=== PATIENT | female | born 1960 | race Caucasian/White ===

== ENCOUNTER 2019-03-22 14:54 | Emergency (ER) | payer OTHER ==
[~2019-03-22] VITALS: Ht 167.6 cm; Wt 82.6 kg
[2019-03-22] MEDS ORDERED: IV NORMAL SALINE 1,000ML 1,000 ML IV SCH (15:05)
--- NOTE | 2019-03-22 15:13 | PHYS DOC ---
Past History Past Medical History: IBS Additional Past Medical Histor: myotonic dystrophy, reports history of left bundle-branch block Past Surgical History: Additional Past Surgical Histo: diagnostic laparoscopy for IBS Smoking: Non-smoker Adult General Chief Complaint Chief Complaint: NAUSEA/VOMITING/DIARRHEA HPI HPI Patient is a 58-year-old female who presents to the emergency department via EMS., For the relatively sudden onset of vomiting which began about an hour prior to arrival. She has had numerous episodes of nonbloody, nonbilious emesis. She denies any pain at this time, including any abdominal pain, headache, chest pain, or shortness of breath. She reports no changes in her bowel habits, or no bloody stools. She denies any numbness or weakness or speech difficulties. She has not had any vision changes. There are no alleviating or exacerbating factors to her symptoms. She reports difficulty hearing over the past week, reportedly saw her PCP who tried to get her into an ENT, but the patient is able to converse normally and exhibits normal hearing. Review of Systems Review of Systems Constitutional: Denies fever or chills [] Eyes: Denies change in visual acuity, redness, or eye pain [] HENT: Denies nasal congestion or sore throat [] Respiratory: Denies cough or shortness of breath [] Cardiovascular: The patient denies any shortness of breath, chest pain, palpitations, or orthopnea[] GI: No other information not addressed in the history of present illness[] : Denies dysuria or hematuria [] Musculoskeletal: Denies back pain or joint pain [] Integument: Denies rash or skin lesions [] Neurologic: Denies headache, focal weakness or sensory changes. Denies dizziness. [] Endocrine: Denies polyuria or polydipsia [] All other systems were reviewed and found to be within normal limits, except as documented in this note. Current Medications Current Medications Current Medications Medications (Trade) Dose Ordered Sig/Mery Start Time Stop Time Status Last Admin Dose Admin Ondansetron HCl (Zofran) 4 mg 1X ONCE 03/22/19 15:15 03/22/19 15:16 UNV Sodium Chloride 1,000 ml @ 1,000 mls/hr Q1H 03/22/19 15:05 03/22/19 16:04 UNV Physical Exam Physical Exam PHYSICAL EXAM: CONSTITUTIONAL: Well developed, well nourished HEAD: normocephalic, atraumatic EENT: PERRL, EOMI. Conjunctivae normal color, sclerae non-icteric; moist mucous membranes. NECK: Supple, non-tender; no meningismus. LUNGS: Lungs CTA, breathing even and unlabored. Normal air movement. HEART: Regular rate and rhythm, no murmur CHEST: No deformity; non-tender ABDOMEN: The abdomen is soft, and non-tender, no masses or bruits. EXTREM: Normal ROM; no deformity, no calf tenderness. Normal pulses palpable in all extremities. There is no pedal edema. SKIN: No rash; no diaphoresis NEURO: Alert; normal speech and cognition; CN's grossly intact; strength grossly symmetrical and intact without focal deficit, although there is diffuse mild muscle weakness. BACK: No CVA TTP. Current Patient Data Lab Results Laboratory Tests Test 03/22/19 15:01 Glucose (Fingerstick) 120 mg/dL (70-99) H EKG EKG Normal sinus rhythm at a rate of 69 beats for minute, left axis deviation, left bundle branch block, there is no acute ischemic ST/T changes.[] Radiology/Procedures Radiology/Procedures PROCEDURE: CT ABDOMEN PELVIS WO CONTRAST CT ABDOMEN PELVIS WO CONTRAST History: Nausea and vomiting. Technique: Noncontrast examination of the abdomen and pelvis. Coronal and sagittal reconstructions were performed. Exposure: One or more of the following individualized dose reduction techniques were utilized for this examination: 1. Automated exposure control 2. Adjustment of the mA and/or kV according to patient size 3. Use of iterative reconstruction technique. Comparison: None Findings: Lower chest: Bibasilar subsegmental atelectasis. No pleural effusion. No consolidation. Abdomen and pelvis: The liver, spleen, adrenal glands, pancreas and gallbladder are unremarkable. Unremarkable appearance of the kidneys. No hydronephrosis. No renal calculi. Normal appendix. No evidence of bowel obstruction. No pathologic lymphadenopathy. No ascites. Bones: No pathologic osseous lesions. Impression: 1. No acute intra-abdominal or pelvic pathology. 2. Bibasilar pulmonary atelectasis. [] Course & Med Decision Making Course & Med Decision Making Pertinent Labs and Imaging studies reviewed. (See chart for details) []5:05 PM: The patient's condition remained stable, her vomiting has stopped. She still appears generally weak. I discussed overnight hospitalization for observation and hydration but she declined, preferring to go home. I discussed importance of close follow-up and return precautions in detail. Ning Disclaimer Dragon Disclaimer This electronic medical record was generated, in whole or in part, using a voice recognition dictation system. Departure Departure: Impression: Primary Impression: Nausea & vomiting Disposition: HOME, SELF-CARE Condition: STABLE Patient Instructions: Nausea and Vomiting Scripts Ondansetron (ONDANSETRON ODT) 4 Mg Tab.rapdis 1 TAB PO PRN Q6-8HRS for N/V, #15 TAB Prov: KAMILLA BRADSHAW MD 03/22/19 KAMILLA BRADSHAW MD Mar 22, 2019 15:12
[2019-03-22] MEDS ORDERED: ONDANSETRON PF 4 MG/2 ML VIAL. IVP ONE (15:15)
[2019-03-22] MEDS ORDERED: IOHEXOL 300 MG/ML 75 ML VIAL. IV ONE (15:15)
[2019-03-22 15:28] LABS: BASO # 0.1 x10^3/uL (0.0-0.2); BASO % 1 % (0-3); EOS # 0.1 x10^3/uL (0.0-0.7); EOS % 2 % (0-3); HEMATOCRIT 44.9 % (36.0-47.0); HEMOGLOBIN 14.7 g/dL (12.0-15.5); LYMPH # 1.4 x10^3/uL (1.0-4.8); LYMPH % 18 % (24-48); MEAN CORPUSCULAR HEMOGLOBIN 31 pg (25-35); MEAN CORPUSCULAR HGB CONC 33 g/dL (31-37); MEAN CORPUSCULAR VOLUME 95 fL (79-100); MONO # 0.4 x10^3/uL (0.0-1.1); MONO % 5 % (0-9); NEUT % 74 % (31-73); PLATELET COUNT 179 x10^3/uL (140-400); RED BLOOD COUNT 4.71 x10^6/uL (3.50-5.40); RED CELL DISTRIBUTION WIDTH 14.3 % (11.5-14.5)
[2019-03-22 15:44] LABS: ALBUMIN 3.8 g/dL (3.4-5.0); ALBUMIN/GLOBULIN RATIO 1.2 (1.0-1.7); CALCIUM 9.1 mg/dL (8.5-10.1); CREATININE 0.7 mg/dL (0.6-1.0); GFR 85.4; POTASSIUM 3.9 mmol/L (3.5-5.1); TOTAL BILIRUBIN 0.9 mg/dL (0.2-1.0); TOTAL PROTEIN 6.9 g/dL (6.4-8.2)
--- NOTE | 2019-03-22 16:08 | RAD ---
CT ABDOMEN PELVIS WO CONTRAST History: Nausea and vomiting. Technique: Noncontrast examination of the abdomen and pelvis. Coronal and sagittal reconstructions were performed. Exposure: One or more of the following individualized dose reduction techniques were utilized for this examination: 1. Automated exposure control 2. Adjustment of the mA and/or kV according to patient size 3. Use of iterative reconstruction technique. Comparison: None Findings: Lower chest: Bibasilar subsegmental atelectasis. No pleural effusion. No consolidation. Abdomen and pelvis: The liver, spleen, adrenal glands, pancreas and gallbladder are unremarkable. Unremarkable appearance of the kidneys. No hydronephrosis. No renal calculi. Normal appendix. No evidence of bowel obstruction. No pathologic lymphadenopathy. No ascites. Bones: No pathologic osseous lesions. Impression: 1. No acute intra-abdominal or pelvic pathology. 2. Bibasilar pulmonary atelectasis. Electronically signed by: Frank Mansfield DO (03/22/2019 4:04 PM) [facility]
[2019-03-22 16:37] VITALS: BP 121/65
[2019-03-22 16:47] LABS: COLOR,URINE YELLOW
[2019-03-22 16:48] LABS: BACTERIA,URINE FEW /HPF (0-FEW); BILIRUBIN,URINE NEG (NEG); CLARITY,URINE CLOUDY; GLUCOSE,URINE NEG (NEG); NITRITE,URINE NEG (NEG); RBC,URINE OCC /HPF (0-2); SQUAMOUS EPITHELIAL CELL,UR MOD /LPF; UROBILINOGEN,URINE 0.2 mg/dL (0.2 mg/dL); WBC,URINE OCC /HPF (0-4)
[2019-03-22] MEDS ORDERED: ONDA4TAB12 PO (17:08)
--- NOTE | 2019-03-26 12:27 | EKG ---
[address] [address] Test Date: 2019-03-22 Test Time: 15:22:37 Pat Name: SANJANA MADDOX Department: Room: Gender: F [employer]: : 1960 Requested By: KAMILLA BRADSHAW Order Number: [id number] Reading MD: Measurements Intervals [place] Rate: 69 P: -56 MD: 152 QRS: -28 QRSD: 124 T: 111 QT: 478 QTc: 514 Interpretive Statements SINUS RHYTHM LEFTWARD AXIS LVH WITH REPOLARIZATION ABNORMALITY QRS(T) CONTOUR ABNORMALITY CONSIDER ANTEROSEPTAL MYOCARDIAL DAMAGE ABNORMAL ECG RI6.01 No previous ECG available for comparison
== END 2019-03-22 17:13 | disposition home or self-care (01) ==
LOC: ER 14:54
DX: R11.2 Nausea with vomiting, unspecified (principal); K58.9 Irritable bowel syndrome, unspecified; Z98.890 Other specified postprocedural states
CPT/HCPCS: 36415; 74176; 80053; 81001; 82947; 83605; 83690; 84484; 85025; 87086; 93005; 96361; 96374; 99285; J2405; J7030